=== PATIENT | male | born 2000 | race Two or more races ===

== ENCOUNTER 2019-05-05 05:57 | Emergency (ER) | payer MEDICAID ==
[~2019-05-05] VITALS: Ht 175.3 cm; Wt 117.9 kg
[2019-05-05] MEDS ORDERED: LORazepam Inj 2mg/ml 1ml IV ONE (06:15)
--- NOTE | 2019-05-05 06:17 | Emergency Room Report ---
History of Present Illness General Chief Complaint: Substance Abuse Source: Patient Present Illness HPI This is a 18-year-old male with no past medical history. He presents with chief complaint of palpitation and anxiety. He said he did methamphetamine yesterday. Also had a bottle of liquor. He said he felt his heart beating fast and he felt anxious. He is afraid of going to sleep because he thought that he may not wake up. Denies any chest pain. Denies any nausea or vomiting. Similar symptom a couple years ago. No other complaint. Not suicidal or homicidal. No delusion or hallucination. Allergies: Coded Allergies: No Known Allergies (Unverified , 05/05/19) Patient History Past Medical History: none, see triage record Past Surgical History: none Pertinent Family History: none Social History: Reports: alcohol use, drug use Immunizations: other Reviewed Nursing Documentation: PMH: Agreed; PSxH: Agreed Review of Systems Eye: Denies: eye pain, blurred vision ENT: Denies: ear pain, nose congestion, throat swelling Respiratory: Denies: cough, shortness of breath Cardiovascular: Reports: palpitations; Denies: chest pain Gastrointestinal: Denies: abdominal pain, diarrhea, nausea, vomiting Musculoskeletal: Denies: back pain, joint pain Skin: Denies: rash Neurological: Denies: headache, numbness Endocrine: Denies: increased thirst, increased urine Hematologic/Lymphatic: Denies: easy bruising All Other Systems: negative except mentioned in HPI Physical Exam Vital Signs Date Time Temp Pulse Resp B/P (MAP) Pulse Ox O2 Delivery O2 Flow Rate FiO2 05/05/19 05:59 98.2 128 20 153/97 (115) 98 Room Air Vitals with tachycardia Sp02 EP Interpretation: reviewed, normal General Appearance: well appearing, no apparent distress, alert Head: normocephalic, atraumatic Eyes: bilateral eye PERRL, bilateral eye EOMI ENT: hearing grossly normal, normal pharynx Neck: full range of motion, supple, no meningismus Respiratory: chest non-tender, lungs clear, normal breath sounds Cardiovascular #1: regular rate, rhythm, no murmur, tachycardia - Heart rate 105 Gastrointestinal: normal bowel sounds, non tender, no mass, no organomegaly, no bruit, non-distended Musculoskeletal: back normal, gait/station normal, normal range of motion Psychiatric: anxious Medical Decision Making Diagnostic Impression: Primary Impression: Substance abuse Additional Impression: Anxiety ER Course Presents with substance-induced anxiety and palpitation. No evidence of ACS, PE , dissection to name a few. Better after hydration. Better after Ativan. Will discharge home if labs unremarkable. Last Vital Signs Date Time Temp Pulse Resp B/P (MAP) Pulse Ox O2 Delivery O2 Flow Rate FiO2 05/05/19 05:59 98.2 128 20 153/97 (115) 98 Room Air Status: improved Disposition: HOME, SELF-CARE Condition: Improved Patient Instructions: Substance Use Disorder Additional Instructions: Stop using drugs and alcohol. Go to rehab. Follow-up with your doctor in 7 days. Return if worse. Steven Perez MD May 05, 2019 06:17
[2019-05-05 06:26] VITALS: BP 153/97
--- NOTE | 2019-05-05 06:29 | NUR ---
ED Nurse Note: Patient presents with complaints of palpitations due methamphetamine use all day yesterday.
[2019-05-05 06:31] LABS: EOSINOPHILS % (AUTO) 0.6 % (0.0-3.0); HEMATOCRIT 51.2 % (42.0-52.0); HEMOGLOBIN 17.2 G/DL (14.2-18.0); LYMPHOCYTES % (AUTO) 19.6 % (20.0-45.0); MEAN CORPUSCULAR VOLUME 83 FL (80-99); MONOCYTES % (AUTO) 7.6 % (1.0-10.0); NEUTROPHILS % (AUTO) 71.1 % (45.0-75.0); PLATELET COUNT 353 K/UL (150-450); RED BLOOD COUNT 6.13 M/UL (4.70-6.10); RED CELL DISTRIBUTION WIDTH 11.5 % (11.6-14.8); WHITE BLOOD COUNT 12.2 K/UL (4.8-10.8)
[2019-05-05 06:40] LABS: ANION GAP 15 mmol/L (5-15); BLOOD UREA NITROGEN 12 mg/dL (7-18); CALCIUM 9.8 MG/DL (8.5-10.1); CARBON DIOXIDE 22 MMOL/L (21-32); CHLORIDE 102 MMOL/L (98-107); CREATININE 1.3 MG/DL (0.55-1.30); POTASSIUM 2.9 MMOL/L (3.5-5.1); SODIUM 139 MMOL/L (136-145)
[2019-05-05 07:24] VITALS: BP 159/86
--- NOTE | 2019-05-05 07:25 | NUR ---
ED Nurse Note: pt awake and alert, oriented x4. denies cp or palpitations at this time. tolerated ivf well. no dyspnea. pt relates family to return to transport home upon dc.
[2019-05-05 07:54] VITALS: BP 140/41
--- NOTE | 2019-05-05 07:57 | NUR ---
ED Nurse Note: Pt cleared by health care Provider for discharge. DC instructions was given and explained to pt and verbalized understanding of teachings. All medical devices such as ID band removed. Pt is AAO x4, ambulatory and left with all personal belongings.
== END 2019-05-05 07:58 | disposition home or self-care (01) ==
LOC: EMR 06:30
DX: F19.10 Other psychoactive substance abuse, uncomplicated (principal); F41.9 Anxiety disorder, unspecified
CPT/HCPCS: 36415; 80048; 85025; 96361; 96374; 99284; J8499

== ENCOUNTER 2019-06-28 20:28 | Emergency (ER) | payer MEDICAID ==
[~2019-06-28] VITALS: Ht 177.8 cm; Wt 117.9 kg
--- NOTE | 2019-06-28 20:45 | NUR ---
ED Nurse Note: pt walked in c/o burning sensation and blood in urine x 2 -3 days. urine specimen obtained, yellow and clear, will send to lab.
[2019-06-28 20:46] VITALS: BP 143/92
--- NOTE | 2019-06-28 21:09 | Emergency Room Report ---
History of Present Illness General Chief Complaint: Male Urogenital Problems Source: Patient Present Illness [facility] Disclaimer: Please note that this report is being documented using DRAGON technology. This can lead to erroneous entry secondary to incorrect interpretation by the dictating instrument. HPI: 19-year-old male with no medical history presents for evaluation of dysuria and hematuria. Patient states that over the past 2 days he has had a stinging pain while passing urine and noticed some intermittent hematuria. He denies pain in his testicles, penile discharge, recent sexual contact or prior history of STI. He states he has had hematuria in the past and some hematochezia recently. No history of hemorrhoids but is never been evaluated. He said he noticed some rectal bleeding while wiping yesterday and today as well. Denies abdominal pain, diarrhea, chest pain, nausea, vomiting, shortness of breath. No history of anemia. No coagulopathy history in the family. PMH: Denies PSH: Ear tubes Allergies: Denies Social Hx: Denies drug or alcohol abuse Allergies: Coded Allergies: No Known Allergies (Unverified , 05/05/19) Nursing Documentation-PMH Past Medical History: No Stated History Review of Systems All Other Systems: negative except mentioned in HPI Physical Exam Vital Signs Date Time Temp Pulse Resp B/P (MAP) Pulse Ox O2 Delivery O2 Flow Rate FiO2 06/28/19 20:37 98.1 60 18 143/92 (109) 100 Room Air General: Awake and alert, no acute distress HEENT: NC/AT. EOMI. Cardiovascular: RRR. S1 and S2 normal. No murmur appreciated Resp: Normal work of breathing. No cough, wheezing or crackles appreciated Abdomen: Abdomen is soft, nondistended. Nontender. No external or internal hemorrhoids palpable. FOBT is positive. : Uncircumcised male. Easily retractable foreskin. No penile discharge no blood at the meatus. Testes in anatomic position, nontender. No hernias. Skin: Intact. No abrasions, laceration or rash over the exposed skin MSK: Normal tone and bulk. Moving all extremities. No obvious deformity. Neuro: Awake and alert. Mentating appropriately. Back/Spine: No midline tenderness in the cervical, thoracic or lumbosacral spine. No flank pain no CVA tenderness Medical Decision Making Diagnostic Impression: Primary Impression: Occult blood positive stool Additional Impression: Dysuria ER Course 19-year-old male presents for evaluation of hematuria and dysuria occurring today and yesterday as well as intermittent rectal bleeding there is been going on for some time. No obvious internal or external hemorrhoids on exam. Differential includes was limited to upper GI bleed, gastric ulcer, diverticulitis, UTI, pyelonephritis, cystitis, urethritis. Will perform CBC, CMP and urinalysis. Overall he is well-appearing. If labs unremarkable may be safe for discharge for outpatient work-up Laboratory Tests Test 06/28/19 20:44 06/28/19 21:53 Urine Color Pale yellow Urine Appearance Clear Urine pH 6 (4.5-8.0) Urine Specific [place] 1.010 (1.005-1.035) Urine Protein Negative (NEGATIVE) Urine Glucose (UA) Negative (NEGATIVE) Urine Ketones Negative (NEGATIVE) Urine Blood Negative (NEGATIVE) Urine Nitrite Negative (NEGATIVE) Urine Bilirubin Negative (NEGATIVE) Urine Urobilinogen Normal MG/DL (0.0-1.0) Urine Leukocyte Esterase Negative (NEGATIVE) White Blood Count 7.7 K/UL (4.8-10.8) Red Blood Count 5.76 M/UL (4.70-6.10) Hemoglobin 16.5 G/DL (14.2-18.0) Hematocrit 45.9 % (42.0-52.0) Mean Corpuscular Volume 80 FL (80-99) Mean Corpuscular Hemoglobin 28.6 PG (27.0-31.0) Mean Corpuscular Hemoglobin Concent 35.9 G/DL (32.0-36.0) Red Cell Distribution Width 10.8 % (11.6-14.8) L Platelet Count 291 K/UL (150-450) Mean Platelet Volume 7.7 FL (6.5-10.1) Neutrophils (%) (Auto) 62.2 % (45.0-75.0) Lymphocytes (%) (Auto) 27.2 % (20.0-45.0) Monocytes (%) (Auto) 8.3 % (1.0-10.0) Eosinophils (%) (Auto) 1.0 % (0.0-3.0) Basophils (%) (Auto) 1.3 % (0.0-2.0) Sodium Level 141 MMOL/L (136-145) Potassium Level 3.4 MMOL/L (3.5-5.1) L Chloride Level 103 MMOL/L (98-107) Carbon Dioxide Level 23 MMOL/L (21-32) Anion Gap 15 mmol/L (5-15) Blood Urea Nitrogen 14 mg/dL (7-18) Creatinine 1.0 MG/DL (0.55-1.30) Estimate Glomerular Filtration Rate > 60 mL/min (>60) Glucose Level 98 MG/DL (74-106) Calcium Level 9.7 MG/DL (8.5-10.1) Total Bilirubin Pending Aspartate Amino Transferase (AST) Pending Alanine Aminotransferase (ALT) Pending Alkaline Phosphatase Pending Total Protein Pending Albumin Pending Globulin Pending Reevaluation Time: 22:33 Last Vital Signs Date Time Temp Pulse Resp B/P (MAP) Pulse Ox O2 Delivery O2 Flow Rate FiO2 06/28/19 20:46 98.1 80 18 143/92 100 Room Air Reevaluation Impression Labs show normal white count, hemoglobin of 16.5, normal renal function unremarkable electrolytes. Urine is noninfectious appearing. The patient will be started on GI prophylaxis for possible upper GI bleed though at this time I believe that his occult positive blood is likely from internal hemorrhoids rather than from upper GI bleed. He can follow-up as an outpatient for GI work- up. We discussed reasons to return to the emergency department. He understands and agrees with this treatment plan was discharged home. Disposition: HOME, SELF-CARE Condition: Stable Scripts Pantoprazole* (PANTOPRAZOLE*) 40 Mg Tablet. 40 MG ORAL DAILY for 30 Days, #30 TAB Prov: Akash San MD 06/28/19 Akash San MD Jun 28, 2019 21:09
[2019-06-28 21:13] LABS: APPEARANCE,URINE CLEAR; BILIRUBIN, URINE NEGATIVE (NEGATIVE); COLOR,URINE PALE YELLOW; GLUCOSE, URINE (UA) NEGATIVE (NEGATIVE); KETONES,URINE NEGATIVE (NEGATIVE); LEUKOCYTE ESTERASE ,URINE NEGATIVE (NEGATIVE); NITRITE,URINE NEGATIVE (NEGATIVE); PH,URINE 6 (4.5-8.0); PROTEIN,URINE NEGATIVE (NEGATIVE); UROBILINOGEN,URINE NORMAL MG/DL (0.0-1.0)
[2019-06-28 22:11] LABS: BASOPHILS % (AUTO) 1.3 % (0.0-2.0); HEMATOCRIT 45.9 % (42.0-52.0); HEMOGLOBIN 16.5 G/DL (14.2-18.0); LYMPHOCYTES % (AUTO) 27.2 % (20.0-45.0); MEAN CORPUSCULAR VOLUME 80 FL (80-99); MONOCYTES % (AUTO) 8.3 % (1.0-10.0); NEUTROPHILS % (AUTO) 62.2 % (45.0-75.0); PLATELET COUNT 291 K/UL (150-450); RED BLOOD COUNT 5.76 M/UL (4.70-6.10); RED CELL DISTRIBUTION WIDTH 10.8 % (11.6-14.8); WHITE BLOOD COUNT 7.7 K/UL (4.8-10.8)
[2019-06-28 22:24] LABS: ANION GAP 15 mmol/L (5-15); BLOOD UREA NITROGEN 14 mg/dL (7-18); CALCIUM 9.7 MG/DL (8.5-10.1); CARBON DIOXIDE 23 MMOL/L (21-32); CHLORIDE 103 MMOL/L (98-107); POTASSIUM 3.4 MMOL/L (3.5-5.1); SODIUM 141 MMOL/L (136-145)
[2019-06-28] MEDS ORDERED: PANTOPRAZOLE SO40 MG ORAL (22:32)
[2019-06-28 22:35] LABS: ALANINE AMINOTRANSFERASE 106 U/L (12-78); ALBUMIN 4.8 G/DL (3.4-5.0); ALBUMIN/GLOBULIN RATIO 1.3 (1.0-2.7); ALKALINE PHOSPHATASE 85 U/L (46-116); ASPARTATE AMINO TRANSFERASE 49 U/L (15-37); BILIRUBIN,TOTAL 1.2 MG/DL (0.2-1.0)
[2019-06-28 22:37] LABS: BILIRUBIN,DIRECT 0.2 MG/DL (0.0-0.3)
--- NOTE | 2019-06-28 22:46 | NUR ---
ED Nurse Note: pt cleared to be d/c per eRMD, pt discharge and aftercare instruction provided w/ prescription, pt education done via discussion and handout, pt advised to follow up with pcp or return to ed if changes in condition, vss, ambulatory w/ steady gait, left w/ all belongings.
[2019-06-28 22:47] VITALS: BP 143/92
== END 2019-06-28 22:47 | disposition home or self-care (01) ==
LOC: EMR 21:30
DX: R30.0 Dysuria (principal); R19.5 Other fecal abnormalities; R31.9 Hematuria, unspecified
CPT/HCPCS: 36415; 80053; 81003; 82248; 85025; 99284

== ENCOUNTER 2019-10-13 10:21 | Emergency (ER) | payer MEDICAID ==
[~2019-10-13] VITALS: Ht 177.8 cm; Wt 127.0 kg
[~2019-10-13 10:21] MED LIST: PANTOPRAZOLE SO40 MG ORAL
[2019-10-13] MEDS ORDERED: NKM (10:49)
[2019-10-13 10:56] VITALS: BP 136/78
[2019-10-13] MEDS ORDERED: NAPROXEN375 M2 ORAL (11:24)
[2019-10-13] MEDS ORDERED: ADULT WAL-TUSS118 ML ORAL (11:24)
--- NOTE | 2019-10-13 11:26 | Emergency Room Report ---
History of Present Illness General Chief Complaint: General Complaint Source: Patient Present Illness HPI Patient is a 19-year-old male who presents after approximate 1 week of sore throat and cough. Reports having frequent nonproductive cough. He denies being a smoker. Denies prior history of lung disease. He reports having some sore throat. Patient reports having some slight bleeding from hemorrhoids. He denies any fever. No leg pain or swelling. Allergies: Coded Allergies: No Known Allergies (Unverified , 05/05/19) Patient History Past Medical History: see triage record Reviewed Nursing Documentation: PMH: Agreed; PSxH: Agreed Nursing Documentation-PM Past Medical History: No History, Except For Hx Gastrointestinal Problems: Yes - "blood in stool from hemorrhoids" Review of Systems All Other Systems: negative except mentioned in HPI Physical Exam Vital Signs Date Time Temp Pulse Resp B/P (MAP) Pulse Ox O2 Delivery O2 Flow Rate FiO2 10/13/19 10:43 98.6 85 20 151/88 (109) 97 10/13/19 10:56 Room Air General Appearance: well appearing, no apparent distress, alert, GCS 15 Head: normocephalic, atraumatic ENT: hearing grossly normal, normal voice Neck: full range of motion, supple Respiratory: chest non-tender, lungs clear, no respiratory distress, speaking full sentences Cardiovascular #1: normal inspection Gastrointestinal: normal inspection Musculoskeletal: normal inspection, no calf tenderness Neurologic: alert, motor strength/tone normal, quill fixer III-XII nml as tested, oriented x3, normal gait Psychiatric: mood/affect normal Skin: no rash Medical Decision Making Diagnostic Impression: Primary Impression: Viral respiratory infection Additional Impression: Hemorrhoids ER Course Patient presented for cough. Differential diagnosis included but was not limited to bronchitis, pneumonia, pulmonary embolism, pericarditis, asthma, foreign body. Patient has a benign exam and does not appear to require any imaging or laboratory testing at this time. Patient appears to have a viral respiratory illness. He does not appear to require any acute treatment. Patient given prescription for medications for symptomatic treatment. He was advised to follow-up with his primary care physician for recheck. He is to return if worse. This medical record is generated with [employer] sound effects manager software. There may be some sound effects manager discrepancies related to use of this software Last Vital Signs Date Time Temp Pulse Resp B/P (MAP) Pulse Ox O2 Delivery O2 Flow Rate FiO2 10/13/19 10:56 85 20 Room Air 10/13/19 10:56 98.6 136/78 98 Status: improved Disposition: HOME, SELF-CARE Condition: Stable Scripts Naproxen* (NAPROXEN*) 375 Mg Tablet. 375 MG ORAL TWICE A DAY, #20 TAB Prov: Ash Maradiaga MD 10/13/19 Guaifenesin/Dextromethorphan* (ADULT WAL-TUSSIN DM SYRUP*) 118 Ml Syrup 5 ML ORAL Q4H, #120 ML Prov: Ash Maradiaga MD 10/13/19 Patient Instructions: Viral Respiratory Infection Ash Maradiaga MD Oct 13, 2019 11:26
[2019-10-13 11:30] VITALS: BP 122/84
== END 2019-10-13 11:30 | disposition home or self-care (01) ==
LOC: EMR 11:10
DX: B34.9 Viral infection, unspecified (principal); K64.9 Unspecified hemorrhoids
CPT/HCPCS: 99282

== ENCOUNTER 2020-01-31 13:55 | Emergency (ER) | payer MEDICAID ==
[~2020-01-31] VITALS: Ht 177.8 cm; Wt 127.0 kg
[~2020-01-31 13:55] MED LIST changes: +ADULT WAL-TUSS118 ML ORAL; +NAPROXEN375 M2 ORAL; +NKM
[2020-01-31 14:21] VITALS: BP 145/95
--- NOTE | 2020-01-31 14:21 | NUR ---
ED Nurse Note: Patient walked in to ED from home c/o blood in the urine x2 days. Pt reports pain and burning sensation while urinating. Denies penile discharges. No fever. No SOB. VSS. ERMD at bedside.
--- NOTE | 2020-01-31 14:25 | NUR ---
ED Nurse Note: Urine specimen collected and sent to lab.
[2020-01-31 14:32] LABS: APPEARANCE,URINE CLEAR; BILIRUBIN, URINE NEGATIVE (NEGATIVE); COLOR,URINE PALE YELLOW; GLUCOSE, URINE (UA) NEGATIVE (NEGATIVE); KETONES,URINE NEGATIVE (NEGATIVE); LEUKOCYTE ESTERASE ,URINE 1+ (NEGATIVE); NITRITE,URINE NEGATIVE (NEGATIVE); PH,URINE 7 (4.5-8.0); PROTEIN,URINE NEGATIVE (NEGATIVE); UROBILINOGEN,URINE NORMAL MG/DL (0.0-1.0)
--- NOTE | 2020-01-31 14:45 | Emergency Room Report ---
History of Present Illness General Chief Complaint: Male Urogenital Problems Present Illness HPI 19-year-old male with history of gastritis here complaining of several months of intermittent appearance of blood in the toilet paper after defecation. Reports that this morning he urinated and he noticed bloody urine as well as dysuria. Reports that he is a lot of greasy and spicy food. Reports that he usually does not eat vegetables and does not think enough water. Reports that he drinks alcohol every now and then. Denies tobacco smoke. Denies any straining at this time however reports that he is usually constipated. Sitting comfortably with stable vital signs. Denies fever and chills, recent travel. Denies diarrhea, nausea vomiting. Denies diffuse abdominal pain. Complains of acid reflux. Has not taken medication for symptom relief. Denies any recent sexual encounter. Allergies: Coded Allergies: No Known Allergies (Unverified , 05/05/19) COVID-19 Screening Contact w/high risk pt: No Recent Travel to affected area: No Experienced COVID-19 symptoms?: No Patient History Past Medical History: see triage record Past Surgical History: none Pertinent Family History: none Social History: Reports: alcohol use Immunizations: UTD Reviewed Nursing Documentation: PMH: Agreed; PSxH: Agreed Nursing Documentation-PMH Hx Gastrointestinal Problems: Yes - "blood in stool from hemorrhoids" Review of Systems All Other Systems: negative except mentioned in HPI Physical Exam Vital Signs Date Time Temp Pulse Resp B/P (MAP) Pulse Ox O2 Delivery O2 Flow Rate FiO2 01/31/20 14:14 98.2 72 16 145/95 (112) 97 Room Air Sp02 EP Interpretation: reviewed, normal General Appearance: no apparent distress, alert, GCS 15, non-toxic Head: normocephalic, atraumatic Eyes: bilateral eye normal inspection, bilateral eye PERRL ENT: hearing grossly normal, normal pharynx, no angioedema, normal voice Neck: full range of motion, supple/symm/no masses Respiratory: chest non-tender, lungs clear, normal breath sounds, no rhonchi, no retraction, no wheezing, speaking full sentences Cardiovascular #1: regular rate, rhythm, no edema Gastrointestinal: non tender, soft, no organomegaly, no peritonitis, no bruit, non-distended Rectal: deferred Genitourinary: no CVA tenderness Musculoskeletal: back normal Neurologic: alert, motor strength/tone normal, oriented x3, sensory intact, responsive, speech normal Psychiatric: judgement/insight normal, memory normal, mood/affect normal, no suicidal/homicidal ideation Skin: no rash Lymphatic: no adenopathy Medical Decision Making PA Attestation All diagnoses and treatment plans were reviewed and discussed with my supervising physician Dr. Meyers Diagnostic Impression: Primary Impression: Hematuria Additional Impressions: Dysuria Hemorrhoids Gastritis ER Course 19-year-old male with history of gastritis here complaining of several months of intermittent appearance of blood in the toilet paper after defecation. Reports that this morning he urinated and he noticed bloody urine as well as dysuria. Reports that he is a lot of greasy and spicy food. Reports that he usually does not eat vegetables and does not think enough water. Reports that he drinks alcohol every now and then. Denies tobacco smoke. Denies any straining at this time however reports that he is usually constipated. Sitting comfortably with stable vital signs. Denies fever and chills, recent travel. Denies diarrhea, nausea vomiting. Denies diffuse abdominal pain. Complains of acid reflux. Has not taken medication for symptom relief. Denies any recent sexual encounter. Ddx considered but are not limited to: UTI, pyelonephritis, internal hemorrhoid , external hemorrhoid, constipation Vital signs: are WNL, pt. is afebrile H&PE are most consistent with: Gastritis, hemorrhoids, dysuria and hematuria ORDERS: UA, urine cx, Colace, Keflex, omeprazole, Tylenol, Anusol ED INTERVENTIONS: None required at this time. DISCHARGE: At this time pt. is stable for d/c to home. Will provide printed patient care instructions, and any necessary prescriptions. Care plan and follow up instructions have been discussed with the patient prior to discharge. Patient to follow primary doctor for stool culture, also follow-up with urologist. If worsening symptoms return to the emergency room. Increase oral hydration, avoid eating spicy greasy food. At this time no further imaging blood work needed patient sitting comfortably and has been having these symptoms and reports it has history of hemorrhoids for over a very long time. Last Vital Signs Date Time Temp Pulse Resp B/P (MAP) Pulse Ox O2 Delivery O2 Flow Rate FiO2 01/31/20 14:21 98.2 72 16 145/95 97 Room Air Disposition: HOME, SELF-CARE Condition: Stable Scripts Omeprazole (OMEPRAZOLE) 20 Mg Tablet.dr 20 MG ORAL DAILY, #30 TAB Prov: Geovanny Aldridge 01/31/20 Acetaminophen* (TYLENOL EXTRA STRENGTH*) 500 Mg Tablet 500 MG ORAL Q8H PRN for Prn Headache/Temp > 101, #30 TAB 0 Refills Prov: Geovanny Aldridge 01/31/20 Hydrocortisone Hc 2.5% Cream (ANUSOL-HC 2.5% CREAM) Y Cr 2 GM RC TID, #30 GM Prov: Geovanny Aldridge 01/31/20 Docusate Sodium* (COLACE*) 100 Mg Capsule 100 MG ORAL DAILY, #14 CAP Prov: Geovanny Aldridge 01/31/20 Cephalexin* (KEFLEX*) 500 Mg Capsule 500 MG ORAL EVERY 12 HOURS for 7 Days, #14 CAP 0 Refills Prov: Geovanny Aldridge 01/31/20 Patient Instructions: Gastritis, Adult, [id number], Hematuria, Adult, Hemorrhoids, [id number], Urinary Tract Infection Additional Instructions: Avoid eating spicy acidic foods, increase her oral hydration and fiber intake as her constipation and hemorrhoids are secondary to low fiber intake. Follow- up with your primary care doctor for further evaluation such as stool culture if symptoms continue. For 10 symptoms return to emergency room. Also have primary doctor send you to a urologist. Geovanny Aldridge Jan 31, 2020 14:45
[2020-01-31] MEDS ORDERED: CEPHALEXIN500 MG ORAL (14:48)
[2020-01-31] MEDS ORDERED: COLACE100 MG ORAL (14:48)
[2020-01-31] MEDS ORDERED: ANUSOL-HC30 GM RC (14:48)
[2020-01-31] MEDS ORDERED: OMEPRAZOLE20 M3 ORAL (14:48)
[2020-01-31] MEDS ORDERED: TYLENOL EXTRA500 MG ORAL (14:48)
[2020-01-31 14:54] VITALS: BP 142/94
--- NOTE | 2020-01-31 14:54 | NUR ---
ER DISCHARGE NOTE: Patient is cleared to be discharged per ERPA, pt is aox4, on room air, with stable vital signs. pt was given dc and prescription instructions, pt was able to verbalize understanding, pt id band removed. pt is able to ambulate with steady gait. pt took all belongings.
== END 2020-01-31 14:54 | disposition home or self-care (01) ==
LOC: EMR 14:29
DX: R31.9 Hematuria, unspecified (principal); R30.0 Dysuria; K64.9 Unspecified hemorrhoids; K29.70 Gastritis, unspecified, without bleeding; K21.9 Gastro-esophageal reflux disease without esophagitis
CPT/HCPCS: 81003; Z7502; 99283